=== PATIENT | male | born 1955 | race Caucasian/White ===

== ENCOUNTER 2017-05-20 16:07 | Outpatient (CLI) | payer OTHER | END 2017-05-20 16:08 | disposition home or self-care (01) | LOC: LABBT 16:07 | PROVIDERS: ATTEND Orthopaedic Surgery | DX: Z01.818 Encounter for other preprocedural examination (principal); M75.121 Complete rotator cuff tear or rupture of right shoulder, not specified as traumatic ==

== ENCOUNTER 2017-05-28 05:41 | Day surgery (SDC) | payer OTHER ==
[2017-05-20 16:47] VITALS: BMI 24.3
[2017-05-28] MEDS ORDERED: CEFAZOLIN/Water 2 GM/20 ML SYRINGE ONE (06:13)
[2017-05-28] MEDS ORDERED: Fentanyl 100 MCG/2 ML VIAL ONE ×2 (06:30→09:31)
[2017-05-28] MEDS ORDERED: Midazolam HCl 2 mg/2 ml Vial ONE ×2 (06:31→07:33)
[2017-05-28] MEDS ORDERED: Promethazine HCl 25 MG/ML VIAL IM PRN (07:26)
[2017-05-28] MEDS ORDERED: traMADol HCl 50 MG TAB PO PRN ×2 (07:26)
[2017-05-28] MEDS ORDERED: HYDROcodone/Acetaminophen 5/325 mg Tablet PO PRN ×2 (07:26)
[2017-05-28] MEDS ORDERED: Fentanyl 100 MCG/2 ML VIAL IV PRN (07:26)
[2017-05-28] MEDS ORDERED: Ketorolac Tromethamine 30 MG/ML VIAL IVP PRN (07:26)
[2017-05-28] MEDS ORDERED: Ropivacaine 0.2% 550 ML 550 ML NERVE BLCK SCH (07:26)
[2017-05-28] MEDS ORDERED: Zolpidem Tartrate 5 MG TAB PO PRN (07:26)
[2017-05-28] MEDS ORDERED: Ondansetron HCl/PF 4 MG/2 ML Vial IVP PRN (07:26)
[2017-05-28] MEDS ORDERED: Lidocaine 2% PF 10 ML AMP (For Epidural Use) ONE (07:35)
[2017-05-28] MEDS ORDERED: ePHEDrine/0.9% NaCl/PF SYRINGE 50 mg/10 ml ONE (07:35)
[2017-05-28] MEDS ORDERED: Ondansetron HCl/PF 4 MG/2 ML Vial ONE (07:35)
[2017-05-28] MEDS ORDERED: Propofol 200 MG/20 ML VIAL ONE (07:35)
--- NOTE | 2017-05-28 10:29 | OP ---
PREOPERATIVE DIAGNOSES: Rotator cuff tear, biceps tendonitis. POSTOPERATIVE DIAGNOSES: Rotator cuff tear, biceps tendonitis. PROCEDURE: Open rotator cuff repair, open acromioplasty, and open biceps tenodesis. SURGEON: Conner Ribeiro M.D. RN OCCUPATIONAL: Jamel Velez PA-C. BLOOD LOSS: Minimal. DRAINS: None. COMPLICATIONS: None. DESCRIPTION OF PROCEDURE: The patient placed in a beach chair position. He received Ancef. Arm was prepped and draped in the usual sterile fashion. I made a deltoid splitting approach. I identified the massive tear performed at the anterior inferior acromioplasty, removed bursal tissue and mobiliz ed the rotator cuff. I freed up the biceps from the superior glenoid tubercle, repaired it with Fibe rWire suture and measured 7 mm drill 7 mm hole and used a 7 mm Bio-Tenodesis screw to tenodese the bi ceps in the groove. These 4 sutures were also used as an anchor to repair the rotator cuff. I place d two additional sutures and mobilized the rotator cuff to an area where it should be attached to a b leeding bed of cancellous bone just on the articular surface. Cut was mobilized and repaired down wi th a good watertight repair and reinforced with a double row type repair. Irrigation performed. Del toid was repaired with #1 Ethibond to bone. Subcutaneous tissue closed with 2-0 Vicryl, skin and sta ples for the skin. There were no complications.
[2017-05-28] MEDS ORDERED: Ropivacaine 0.5% HCl/PF (150 MG/30 ML VIAL) ONE (14:49)
== END 2017-05-28 11:15 | disposition home or self-care (01) ==
LOC: SDC 05:41
PROVIDERS: ATTEND Orthopaedic Surgery
PROC: 0LS30ZZ Reposition Right Upper Arm Tendon, Open Approach (ICD-10-PCS; principal; 2017-05-28)
DX: M75.121 Complete rotator cuff tear or rupture of right shoulder, not specified as traumatic (principal); F17.200 Nicotine dependence, unspecified, uncomplicated
CPT/HCPCS: 96374; A4306; C1713; G8984-GP-CK; G8985-GP-CK; G8986-GP-CK; J2001; J2250; J2405; J2704; J2795; J3010